=== PATIENT | female | born 1970 | race Caucasian/White ===

== ENCOUNTER → 2017-04-09 | Outpatient (CLI) | payer OTHER | LOC: ULTRA 10:28 | DX: E04.2 Nontoxic multinodular goiter (principal); R59.0 Localized enlarged lymph nodes ==

== ENCOUNTER → 2018-04-22 | Outpatient (CLI) | payer OTHER | LOC: ULTRA 09:56 | DX: E04.1 Nontoxic single thyroid nodule (principal); R59.0 Localized enlarged lymph nodes ==

== ENCOUNTER → 2019-02-02 | Outpatient (CLI) | payer OTHER ==
[~2019-02-02] VITALS: Ht 170.2 cm; Wt 82.6 kg
[~2019-02-02] MED LIST: CLARITIN10 MG PO
--- NOTE | ~2019-02-02 | P ---
[facility] [place] [address] PROCEDURE REPORT Name: DAYDAY CONTRERAS Kaley Room #: REG [facility]#: [id number] Admission: 02/02/19 Attend Phys: Nicola Nagel MD Discharge: Date of : 68 Report #: [id number] THIS REPORT FOR: //name// CC: Nicola Nagel OUTPATIENT COLONOSCOPY BRIEF HISTORY: The patient is a 49-year-old woman for first time average risk screening colonoscopy. PREOPERATIVE DIAGNOSIS: Screening colonoscopy. POSTOPERATIVE DIAGNOSES: 1. Colon polyps. 2. Few scattered small colonic diverticula. MEDICATIONS: Deep sedation with propofol per Anesthesia. SPECIMENS: 1. Distal transverse colon polyp. 2. Rectal polyp. ESTIMATED BLOOD LOSS: 3 mL. PROCEDURE: Colonoscopy to cecum and terminal ileum with snare polypectomy and biopsy. FINDINGS: Prior to propofol sedation, the procedure of colonoscopy was discussed with the patient as well as potential risks and its complications. She indicates she understands and desires to proceed. DESCRIPTION OF PROCEDURE: With the patient in left lateral decubitus position, digital examination was completed, which revealed no abnormalities. Subsequently, the Olympus video colonoscope was introduced in the rectum, advanced under direct vision to the cecum. Done with minimal difficulty. The cecum was identified by the ileocecal valve and the appendiceal orifice. I was able to visualize the distal segment of terminal ileum, which was inspected and noted to be unremarkable. At that point, the scope was slowly withdrawn and careful circumferential views were obtained. Upon slow withdrawal of the scope, the prep was excellent. Mucosa was within normal limits, normal vascular pattern, normal light reflex. As we withdrew the scope, no abnormalities were noted until the distal transverse colon was reached. At that point, there was a flat 6-8 mm mucus covered polyp. This has the appearance of a possible serrated adenoma. It was removed by cold snare polypectomy and recovered. The scope was further withdrawn and occasional small diverticulum was seen. There was no [facility] [address] [place] [address] PROCEDURE REPORT Name: DAYDAY CONTRERAS Kaley Room #: REG [facility]#: [id number] Admission: 02/02/19 Attend Phys: Nicola Nagel MD Discharge: Date of : 68 Report #: [id number] endoscopic evidence of diverticulitis. Scope was withdrawn in the rectum and a diminutive adenomatous-appearing polyp was seen and removed with biopsy forceps. Upon retroflexion, no additional lesions were seen. Scope was withdrawn. The patient tolerated the procedure well. CONDITION OF THE PATIENT UPON DISCHARGE: Following procedure, the patient drowsy, aroused, conversant and will be discharged home when fully ambulatory. INSTRUCTIONS TO THE PATIENT AND FAMILY AT THE TIME OF DISCHARGE: Two polyps identified and removed as described above. We will follow up on the pathology. If one or both of these are adenomatous or serrated polyps, she should return in 5 years for a surveillance colonoscopy. If they are both hyperplastic, then 10 years would be indicated. This is the patient's first colonoscopy. Withdrawal time from the cecum was 13 minutes 45 seconds. By: [id number] Nicola Nagel MD /nt
--- NOTE | 2019-02-06 17:06 | PATH ---
[facility] [address] [place] [address] PATHOLOGY RPT PROCEDURE Name: COLEMANDAYDAY Room #: REG YON[facility] Kim.#: [id number] Admission: 02/02/19 Date of : 68 Discharge: Report #: [id number] Path Case #: [id number] [facility] Accession Number: [id number] . 01 Material submitted: . PART A: colon - POLYP AT DISTAL TRANSVERSE COLON. Modifiers: distal, transverse PART B: rectum - POLYP AT RECTUM . 01 Clinical history: . Screening colonoscopy . 02 Diagnosis: A. Polyp, at distal transverse colon, endoscopic biopsy: - Hyperplastic polyp. - Negative for dysplasia. . B. Polyp, at rectum, endoscopic biopsy: - Tubular adenoma. - Negative for high grade dysplasia. . (IUV:mml; 02/06/2019) QLM 02/06/2019 1332 Local . 02 Electronically signed: . Reena Castillo MD, Pathologist NPI- [id number] . 01 Gross description: . A. The specimen is received in formalin, labeled "Dayday [place], polyp at distal transverse colon". Received is a segment of pale ruby soft tissue measuring 1.8 cm in maximum dimensions. The specimen is submitted entirely in cassette A1. . B. The specimen is received in formalin, labeled "Dayday [place], polyp at rectum". Received is a segment of pale ruby soft tissue measuring 0.5 cm in maximum dimensions. The specimen is submitted entirely in cassette B1. (CAA; 02/03/2019) QAC/QAC 02/03/2019 1042 Local . 02 Pathologist provided ICD-10: K63.5, D12.8 . 02 CPT . 140723, 247275 Specimen Comment: A courtesy copy of this report has been sent to [phone], [phone], [place] [address] PATHOLOGY RPT PROCEDURE Name: DAYDAY COLEMAN Room #: REG [facility]#: [id number] Admission: 02/02/19 Date of : 68 Discharge: Report #: [id number] Path Case #: [id number] Specimen Comment: [id number] Specimen Comment: Report sent to / DR BUSTAMANTE Performed at: [address], [place], [place] [id number] MD Ashutosh Bello MD Phone: [phone] Performed at: [address] [id number] MD Reena Castillo MD Phone: [phone]
== END | disposition home or self-care (01) ==
LOC: GI 06:46
DX: Z12.11 Encounter for screening for malignant neoplasm of colon (principal); D12.8 Benign neoplasm of rectum; K57.30 Diverticulosis of large intestine without perforation or abscess without bleeding; J45.909 Unspecified asthma, uncomplicated; Z98.890 Other specified postprocedural states; Z79.899 Other long term (current) drug therapy
CPT/HCPCS: 62110; 62900

== ENCOUNTER → 2019-04-20 | Outpatient (CLI) | payer BC, OTHER | LOC: ULTRA 14:27 | DX: E04.2 Nontoxic multinodular goiter (principal) ==

== ENCOUNTER → 2020-05-30 | Outpatient (CLI) | payer BC, OTHER | LOC: ULTRA 10:29 | PROVIDERS: ATTEND Specialist | DX: E04.2 Nontoxic multinodular goiter (principal) ==